=== PATIENT | female | born 1980 | race African-American/Black ===

== ENCOUNTER 2016-08-08 03:43 | Emergency (ER) | payer OTHER ==
[~2016-08-08] VITALS: Ht 167.6 cm; Wt 131.5 kg
--- NOTE | 2016-08-08 03:44 | NUR ---
Dr. Nicolas evaluating patient
--- NOTE | 2016-08-08 03:45 | NUR ---
PT TAKEN TO BED 7
[2016-08-08 03:48] VITALS: BP 136/75
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
[2016-08-08 04:22] LABS: BASOPHILS # (AUTO) 0.6 K/uL (0.00-0.22)
[2016-08-08] MEDS ORDERED: LIDOCAINE 1% 500 MG/50 ML VIAL INJ ONE (04:25)
[2016-08-08 04:28] LABS: APPEARANCE,URINE SL CLOUDY (CLEAR); BILIRUBIN,URINE NEGATIVE (NEGATIVE); BLOOD, URINE 1+ (NEGATIVE); COLOR,URINE YELLOW (YELLOW); LEUKOCYTE ESTERASE ,URINE 1+ (NEGATIVE); NITRITE, URINE POSITIVE (NEGATIVE); PH,URINE 6.5 (5.0-9.0); PROTEIN,URINE TRACE (NEGATIVE); UGLUCOSE NEGATIVE (NEGATIVE); UROBILINOGEN,URINE 0.2 EU/dL (0.2 - 1)
[2016-08-08 04:28] LABS: BASOPHILS % (AUTO) 3.6 % (0.0-2.0); EOSINOPHILS # (AUTO) 0.2 K/uL (0-0.4); EOSINOPHILS % (AUTO) 1.3 % (0.0-4.0); HEMATOCRIT 42.2 % (36-48); HEMOGLOBIN 13.5 g/dL (12.0-16.0); LYMPHOCYTES # (AUTO) 2.2 K/uL (2.5-16.5); LYMPHOCYTES % (AUTO) 12.1 % (20.5-51.1); MEAN CORPUSCULAR HEMOGLOBIN 25 pg (27-31); MEAN CORPUSCULAR HGB CONC 32 g/dL (33-37); MEAN CORPUSCULAR VOLUME 78 fL (80-94); MONOCYTES # (AUTO) 0.8 K/uL (0.8-1.0); MONOCYTES % (AUTO) 4.6 % (1.7-9.3); NEUTROPHILS % (AUTO) 78.4 % (42.2-75.2); PLATELET COUNT (AUTO) 262 K/uL (140-450); RED BLOOD CELL COUNT(AUTO) 5.44 MIL/uL (4.20-5.40); RED CELL DISTRIBUTION WIDTH 13.8 % (11.6-13.7); WHITE BLOOD COUNT (AUTO) 17.8 K/uL (4.8-10.8)
[2016-08-08 04:35] LABS: BACTERIA,URINE 4+ /HPF (None Seen)
[2016-08-08 04:36] LABS: TRICHOMONAS,URINE Rare /HPF (None Seen)
[2016-08-08 04:41] LABS: AMPHETAMINE, URINE NEG. ng/ml (NEG <=1000); BARBITURATE, URINE NEG. ng/ml (NEG <=200); BENZODIAZEPINE, URINE NEG. ng/mL (NEG <=200); CANNABINOID, URINE NEG. ng/mL (NEG <=50); COCAINE, URINE NEG. ng/mL (NEG <=300); OPIATE, URINE NEG. ng/mL (NEG <=2000); PHENCYCLIDINE SCREEN,URINE NEG. ng/mL (NEG <=25)
[2016-08-08 04:41] LABS: ALBUMIN 3.6 g/dL (3.4-5.0); ANION GAP 12.1 (8-16); CALCIUM 9.1 mg/dL (8.5-10.1); CREATININE 0.8 mg/dL (0.6-1.3); POTASSIUM 4.1 mmol/L (3.5-5.1); TOTAL BILIRUBIN 0.2 mg/dL (0.0-1.0); TOTAL PROTEIN, SERUM 7.3 g/dL (6.4-8.2)
--- NOTE | 2016-08-08 04:41 | NUR ---
PT TAKEN TO CT
[2016-08-08 04:43] LABS: INR 1.1 (0.8-1.2); PARTIAL THROMBOPLASTIN TIME 24.9 secs (22-35.6)
--- NOTE | 2016-08-08 05:04 | NUR ---
PT RETURN FROM CT
[2016-08-08] MEDS ORDERED: BACITRACIN OINT 500 UNITS/GM PKT TP ONE (05:19)
--- NOTE | 2016-08-08 05:27 | NUR ---
PER ER VERBAL ORDERS TO ADMINISTER NORCO 10MG PO. MED ADMINISTERED, ORDER READ BACK TO DR AVILA BEFORE ADMINISTRATION.
[2016-08-08] MEDS ORDERED: HYDROcodone/APAP 10/325 MG 1 TAB TAB ONE (05:30)
[2016-08-08] MEDS ORDERED: HYDROcodone/APAP 10/325 MG 1 TAB TAB PO ONE (05:40)
[2016-08-08 05:55] VITALS: BP 131/74
--- NOTE | 2016-08-08 05:55 | NUR ---
Patient discharged with v/s stable. Written and verbal after care instructions given and explained. Patient alert, oriented and verbalized understanding of instructions. Ambulatory with steady gait. All questions addressed prior to discharge. ID band removed. Patient advised to follow up with PMD IN 2 DAYS AND RETURN TO ER IF IN 10 DAYS FOR STAPLE REMOVAL. Rx of MOTRIN, KEFLEX, AND NORCO given. Patient educated on indication of medication including possible reaction and side effects. Opportunity to ask questions provided and answered.
== END 2016-08-08 05:55 | disposition home or self-care (01) ==
LOC: MED 03:43
DX: S01.01XA Laceration without foreign body of scalp, initial encounter (principal); N30.90 Cystitis, unspecified without hematuria; F07.81 Postconcussional syndrome; M25.512 Pain in left shoulder; W10.9XXA Fall (on) (from) unspecified stairs and steps, initial encounter; Y93.89 Activity, other specified; Y92.89 Other specified places as the place of occurrence of the external cause; Y99.8 Other external cause status
CPT/HCPCS: 12001; 36415; 70450; 72125; 73030; 80053; 80305; 81001; 81025; 85025; 85610; 85730; 87086; 87186; 90471; 90715; 99285; J2001

== ENCOUNTER 2016-08-11 17:31 | Emergency (ER) | payer OTHER ==
[~2016-08-11] VITALS: Ht 167.6 cm; Wt 131.5 kg
[2016-08-11 17:45] VITALS: BP 143/88
--- NOTE | 2016-08-11 19:11 | NUR ---
PATIENT TO BED 4 AT THIS TIME.
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
--- NOTE | 2016-08-11 20:15 | NUR ---
Patient being evaluated by at bedside.
--- NOTE | 2016-08-11 20:40 | NUR ---
Patient discharged with v/s stable. Written and verbal after care instructions given and explained. Patient alert, oriented and verbalized understanding of instructions. Ambulatory with steady gait. All questions addressed prior to discharge. ID band removed. Patient advised to follow up with PMD. Rx of CLINDAMYCIN 300 MG, HYDROCORTISINE 2.5% TOPICAL CREAM, BENEDRYL 25 MG given. Patient educated on indication of medication including possible reaction and side effects. Opportunity to ask questions provided and answered.
[2016-08-11 20:51] VITALS: BP 130/85
== END 2016-08-11 20:40 | disposition home or self-care (01) ==
LOC: MED 17:31
DX: S40.262A Insect bite (nonvenomous) of left shoulder, initial encounter (principal); S40.261A Insect bite (nonvenomous) of right shoulder, initial encounter; T63.481A Toxic effect of venom of other arthropod, accidental (unintentional), initial encounter; S01.01XD Laceration without foreign body of scalp, subsequent encounter; R03.0 Elevated blood-pressure reading, without diagnosis of hypertension; Z88.5 Allergy status to narcotic agent; Y93.89 Activity, other specified; Y92.89 Other specified places as the place of occurrence of the external cause; Y99.8 Other external cause status